=== PATIENT | male | born 1955 | race Caucasian/White ===

== ENCOUNTER 2024-06-24 14:05 | Emergency (ER) | payer MEDICARE ==
[~2024-06-24] VITALS: Ht 177.8 cm; Wt 89.5 kg
[2024-06-24] MEDS ORDERED: ACET32TAB PO (14:19)
[2024-06-24] MEDS ORDERED: TIMOXEOPD OP (14:19)
[2024-06-24 16:02] VITALS: BP 170/90; TEMP 97.1; O2SAT 97
== END 2024-06-24 16:06 | disposition home or self-care (01) ==
LOC: M ED 14:05
DX: S92.002A Unspecified fracture of left calcaneus, initial encounter for closed fracture (principal); W11.XXXA Fall on and from ladder, initial encounter; Y92.009 Unspecified place in unspecified non-institutional (private) residence as the place of occurrence of the external cause; Y93.9 Activity, unspecified; Y99.9 Unspecified external cause status; H40.9 Unspecified glaucoma; M25.572 Pain in left ankle and joints of left foot; M79.672 Pain in left foot; M77.32 Calcaneal spur, left foot; M76.62 Achilles tendinitis, left leg

== ENCOUNTER → 2024-06-24 | Outpatient (CLI) | payer MEDICARE ==
[~2024-06-24] MED LIST: ACET32TAB PO; TIMOXEOPD OP
== END ==
LOC: M WUC 13:12
PROVIDERS: ATTEND Physician Assistant
DX: M25.572 Pain in left ankle and joints of left foot (principal); M79.672 Pain in left foot; M77.32 Calcaneal spur, left foot; M76.62 Achilles tendinitis, left leg

== ENCOUNTER 2024-07-05 06:08 | Day surgery (SDC) | payer MEDICARE ==
[~2024-07-05] VITALS: Ht 175.3 cm; Wt 88.3 kg
[2024-07-05] MEDS ORDERED: SUGAMMADEX SODIUM 500 MG/5 ML VIAL (BRIDION) As Ordered ONE (06:13)
[2024-07-05] MEDS ORDERED: ROCURONIUM BROMIDE 50MG/5ML VIAL As Ordered ONE (06:13)
[2024-07-05] MEDS ORDERED: LIDOCAINE 2% 100MG/5ML SDV (FOR ANES.) As Ordered ONE (06:13)
[2024-07-05] MEDS ORDERED: GLYCOPYRROLATE INJ 0.2 MG/ML 2 ML VIAL As Ordered ONE (06:13)
[2024-07-05] MEDS ORDERED: propofoL 200 MG/20 ML VIAL As Ordered ONE (06:13)
[2024-07-05] MEDS ORDERED: ONDANSETRON 4MG 2ML VIAL As Ordered ONE (06:13)
[2024-07-05] MEDS ORDERED: fentaNYL 100 MCG/2 ML INJECTION As Ordered ONE (06:15)
[2024-07-05] MEDS ORDERED: MIDAZOLAM INJ 2MG/2ML VIAL As Ordered ONE (06:15)
[2024-07-05] MEDS ORDERED: ACETAMINOPHEN 1000MG/100ML IV BAG As Ordered ONE (06:22)
[2024-07-05] MEDS: fentaNYL 100 MCG/2 ML INJECTION IV PRN (07:33)
[2024-07-05] MEDS: MIDAZOLAM INJ 2MG/2ML VIAL IV PRN (07:33)
[2024-07-05] MEDS: LIDOCAINE 1% SDV 5ML VIAL PN ONE (07:36)
[2024-07-05] MEDS: ROPIvacaine 0.5% 30ML VIAL PN ONE (07:36)
[2024-07-05] MEDS: ceFAZolin 2 GM/D5W 50 ML IV BAG As Ordered ONE (08:00)
[2024-07-05] MEDS ORDERED: OXYC1TAB23 PO (09:48)
[2024-07-05 10:54] VITALS: BP 148/78; TEMP 97.6; O2SAT 96
== END 2024-07-05 11:00 | disposition home or self-care (01) ==
LOC: M SDC 06:08
PROVIDERS: ATTEND Orthopaedic Surgery
DX: S92.002A Unspecified fracture of left calcaneus, initial encounter for closed fracture (principal); Z79.899 Other long term (current) drug therapy
CPT/HCPCS: 28415; 76000; 93005; C1713; J0131; J0690; J1100; J1596; J2250; J2405; J3010

== ENCOUNTER → 2024-07-13 | Outpatient (CLI) | payer MEDICARE ==
[~2024-07-13] MED LIST changes: +OXYC1TAB23 PO
== END ==
LOC: M SOG 07:50
PROVIDERS: ATTEND Orthopaedic Surgery
DX: S92.002A Unspecified fracture of left calcaneus, initial encounter for closed fracture (principal); Y93.9 Activity, unspecified; Y92.9 Unspecified place or not applicable

== ENCOUNTER → 2024-08-26 | Outpatient (CLI) | payer MEDICARE | LOC: M SOG 07:52 | PROVIDERS: ATTEND Physician Assistant | DX: S92.002D Unspecified fracture of left calcaneus, subsequent encounter for fracture with routine healing (principal) ==

== ENCOUNTER → 2024-10-24 | Outpatient (CLI) | payer MEDICARE | LOC: M SOG 07:49 | PROVIDERS: ATTEND Orthopaedic Surgery | DX: S92.002D Unspecified fracture of left calcaneus, subsequent encounter for fracture with routine healing (principal) ==